=== PATIENT | male | born 1990 | race Caucasian/White ===

== ENCOUNTER 2017-05-04 14:14 | Emergency (ER) | payer OTHER ==
[~2017-05-04] VITALS: Ht 188 cm; Wt 100.0 kg
[~2017-05-04 14:14] MED LIST: AMOXICILLIN500 MG PO; NAPROSYN500 MG OR; NAPROSYN500 MG PO; NO HOME MEDS; PERCOCET 10/31 COMBO PO; PERCOCET 5/325M1 TAB PO; ROBITUSSIN200 MG/10 PO
[2017-05-04] MEDS ORDERED: FLEXERIL5 M1 PO (14:51)
[2017-05-04] MEDS ORDERED: MOTRIN800 MG PO (14:51)
[2017-05-04 15:03] VITALS: BP 126/85
== END 2017-05-04 15:10 | disposition home or self-care (01) | DRG 563 ==
LOC: ED 14:14
DX: S39.012A Strain of muscle, fascia and tendon of lower back, initial encounter (principal); R10.31 Right lower quadrant pain; X50.0XXA Overexertion from strenuous movement or load, initial encounter; Y93.89 Activity, other specified

== ENCOUNTER → 2018-11-04 | Outpatient (REF) ==
[~2018-11-04] MED LIST changes: +FLEXERIL5 M1 PO; +MOTRIN800 MG PO
[2018-11-04 09:31] LABS: CHOLESTEROL HDL RATIO 3.8 (<4.4 (CALC))
== END | disposition home or self-care (01) | DRG 951 ==
LOC: LAB 07:58
PROVIDERS: ATTEND Family Medicine
DX: Z02.6 Encounter for examination for insurance purposes (principal)

== ENCOUNTER 2021-04-22 12:45 | Emergency (ER) | payer OTHER ==
[~2021-04-22] VITALS: Ht 188 cm; Wt 100.0 kg
[~2021-04-22 12:45] MED LIST changes: +AZITHROMYCIN500 MG PO; +DECADRON6 MG PO; +IVERMECTIN3 MG PO; +PREDNISONE10 MG PO
[2021-04-22 14:45] LABS: HEMATOCRIT 47.1 % (39.0-50.0); HEMOGLOBIN 15.4 g/dl (14.0-18.0); IMMATURE GRANULOCYTES 0.4 % (0.0-5.0); MEAN CELL VOLUME 92.9 fL CALC (80.0-100.0); MEAN CORPUSCULAR HGB 30.4 pG CALC (26.0-32.0); MEAN CORPUSCULAR HGB CONC 32.7 g/dL CAL (32.0-36.0); NEUT# 6.25 thou/uL (1.82-7.42); RED BLOOD COUNT 5.07 mill/uL (4.70-6.10); RED CELL DISTRI WIDTH 12.8 % (11.5-15.5)
[2021-04-22 15:12] LABS: ALBUMIN 3.9 g/dL (3.2-5.0); ALKALINE PHOSPHATASE 41 u/l (38-126); ANION GAP 14 (6-22 (CALC)); BUN 17 mg/dL (9-20); BUN/CREATININE RATIO 24 (12-20 (CALC)); C-REACTIVE PROTEIN 2.6 mg/dL (0-0.9); CARBON DIOXIDE 25 mmol/l (22-30); CHLORIDE 104 mmol/l (95-108); CREATININE 0.7 mg/dL (0.7-1.3); GFR > 60 ML/MIN (>=60 (CALC)); GFR FOR AFR.AMER. > 60 ML/MIN (>=60 (CALC)); POTASSIUM 3.9 mmol/l (3.5-5.1); SGOT/AST 28 u/l (17-59); SODIUM 139 mmol/l (137-146); TOTAL PROTEIN 7.4 g/dL (6.3-8.2)
[2021-04-22 15:13] LABS: BILIRUBIN, TOTAL 0.4 mg/dL (0.0-1.4)
[2021-04-22 16:15] VITALS: BP 120/78
== END 2021-04-22 16:15 | disposition home or self-care (01) | DRG 177 ==
LOC: ED 12:45
PROVIDERS: Family Medicine
DX: U07.1 COVID-19 (principal); J12.82 Pneumonia due to coronavirus disease 2019